=== PATIENT | male | born 1955 | race Caucasian/White ===

== ENCOUNTER 2021-07-29 08:00 | Outpatient (CLI) | payer OTHER | END 2021-07-29 23:59 | LOC: LAB.N 08:00 | PROVIDERS: ATTEND Nurse Practitioner | DX: H10.9 Unspecified conjunctivitis (principal) | CPT/HCPCS: 87070; 87205 ==

== ENCOUNTER 2023-06-21 16:22 | Outpatient (CLI) | payer OTHER | END 2023-06-21 16:23 | disposition critical access hospital (66) | LOC: EMS 16:22 | DX: R06.00 Dyspnea, unspecified (principal) | CPT/HCPCS: A0425; A0429 ==